=== PATIENT | female | born 1995 | race Caucasian/White ===

== ENCOUNTER 2017-04-30 21:02 | Emergency (ER) | payer OTHER ==
[~2017-04-30] VITALS: Ht 162.6 cm; Wt 75.0 kg
[~2017-04-30 21:02] MED LIST: ACET325T45 PO; ACET500C5 PO; ALBU18HF INHALATION; AZIT250T6 PO; AZIT250T94 PO; CIPR500T4 PO; D-ME118S6 PO; IBUP-1542 PO; ONDA4TAB14 PO; PHEN-538 PO; PHEN177S43 MT; PRED20TA PO
[2017-04-30 21:04] VITALS: Ht 162.6 cm; Wt 75.0 kg
[2017-04-30 21:56] LABS: BASOPHILS % 0.2 % (0.0-2.0); EOSINOPHILS # 0.2 10^3/ul (0.0-0.5); EOSINOPHILS % 1.8 % (0.0-7.0); HEMATOCRIT 41.7 % (37.0-47.0); LYMPHOCYTES # 3.5 10^3/ul (0.8-2.9); LYMPHOCYTES % 37.8 % (18.0-55.0); MEAN CORPUSCULAR HEMOGLOBIN 29.7 pg (29.0-33.0); MEAN CORPUSCULAR HGB CONC 33.6 g/dl (32.0-37.0); MEAN CORPUSCULAR VOLUME 88.5 fl (72.0-104.0); MEAN PLATELET VOLUME 9.5 fl (7.4-10.4); MONOCYTE # 0.5 10^3/ul (0.3-0.9); MONOCYTES % 5.6 % (0.0-13.0); NEUTROPHILS % 54.4 % (30.0-74.0); PLATELET COUNT 442 10^3/UL (140-415); RED BLOOD COUNT 4.71 10^6/ul (4.20-5.40); RED CELL DISTRIBUTION WIDTH 13.7 % (11.5-14.5); WHITE BLOOD COUNT 9.2 10^3/ul (4.8-10.8)
[2017-04-30 22:15] LABS: ADD UMIC NO; UR ASCORBIC ACID NEGATIVE (NEGATIVE); UR BILIRUBIN (Dip) NEGATIVE (NEGATIVE); UR BLOOD (Dip) NEGATIVE (NEGATIVE); UR CLARITY CLEAR (CLEAR); UR COLOR YELLOW (YELLOW); UR GLUCOSE (Dip) NEGATIVE (NEGATIVE); UR KETONES (Dip) NEGATIVE (NEGATIVE); UR LEUKOCYTE ESTERASE (Dip) NEGATIVE Leu/ul (NEGATIVE); UR NITRITE (Dip) NEGATIVE (NEGATIVE); UR SPECIFIC GRAVITY (Dip) 1.027 (1.003-1.030); UR TOTAL PROTEIN (Dip) NEGATIVE (NEGATIVE); UR UROBILINOGEN (Dip) NEGATIVE (NEGATIVE)
[2017-04-30 22:21] LABS: ALBUMIN 4.4 g/dl (3.3-4.9); ALBUMIN/GLOBULIN RATIO 1.07; BILIRUBIN,INDIRECT 0.1 mg/dl (0-1.1); BILIRUBIN,TOTAL 0.1 mg/dl (0.2-1.3); CALCIUM 9.6 mg/dl (8.4-10.2); CREATININE 0.97 mg/dl (0.44-1.00); POTASSIUM 3.8 mmol/L (3.5-5.1); TOTAL PROTEIN 8.5 g/dl (6.1-8.1)
[2017-04-30] MEDS ORDERED: HYDR-3010 PO (22:53)
--- NOTE | 2017-05-01 00:37 | ERD ---
ER Documentation Chief Complaint Chief Complaint itchines of both hands x 2 days HPI 21-year-old female complaining of itchy palms 2 weeks. Patient stated it comes and goes and does not know what caused the irritation. She has never had this before. Denies any epigastric pain or chest pain. Denies fever. Patient symptoms and states that the itching sensation resolved spontaneously. Denies medical problems. Denies chest pain or shortness of breath. ROS All systems reviewed and are negative except as per history of present illness. Medications Home Meds Active Scripts Hydroxyzine Hcl* (Hydroxyzine Hcl*) 10 Mg Tablet, 10 MG PO Q6H Y for ITCHING, # 30 TAB Prov:JENNIFER SHULTZ PA-C 04/30/17 Ondansetron (Ondansetron Odt) 4 Mg Tab.rapdis, 4 MG PO Q8 Y for NAUSEA AND/OR VOMITING, #30 TAB Prov:CHRISTINE HAUSER NP 03/07/16 Ibuprofen* (Motrin*) 600 Mg Tab, 600 MG PO Q6H Y for PAIN AND OR ELEVATED TEMP, #30 TAB Prov:CHRISTINE HAUSER NP 03/07/16 Acetaminophen* (Tylophen*) 500 Mg Capsule, 1 CAP PO Q6H Y for PAIN AND OR ELEVATED TEMP, #20 CAP Prov:CHRISTINE HAUSER NP 03/07/16 Albuterol Sulfate* (Ventolin HFA*) 18 Gm Hfa.aer.ad, 2 PUFF INHALATION Q4H for 7 Days, INHALER Prov:NAHED LUCAS MD 09/09/15 Prednisone* (Prednisone*) 20 Mg Tab, 40 MG PO DAILY for 5 Days, TAB Prov:NAHED LUCAS MD 09/09/15 Azithromycin* (Zithromax*) 250 Mg Tablet, 250 MG PO .CHOLO DIRECTED, #6 TAB TAKE 500 MG (2 TABS) THE FIRST DAY THEN 250 MG (1 TAB) DAYS 2-5 Prov:NAHED LUCAS MD 09/09/15 Dextromethorphan Hb-Promethazine Hcl (Promethazine DM Syrup) 180 Ml Syrup, 5 ML PO Q6 Y for COUGH, #180 ML Prov:PANFILO KEANE DO 09/01/15 Acetaminophen* (Acetaminophen*) 325 Mg Tablet, 650 MG PO Q6 Y for PAIN AND OR ELEVATED TEMP, #30 TAB Prov:PANFILO KEANE DO 09/01/15 Phenol* (Chloraseptic* [place]) 177 Ml [place].pump, 2 SPRAY MT Q2H Y for SORE THROAT, #1 BOTTLE Prov:PANFILO KEANE DO 09/01/15 Azithromycin* (Azithromycin*) 250 Mg Tablet, 250 MG PO DAILY, #6 TAB 2 tabs (500mg) on day 1, then 1 tab (250mg) daily for days 2-5. Prov:NAHED BELTRE PA-C 04/22/15 Phenazopyridine Hcl* (Pyridium*) 200 Mg Tab, 200 MG PO TID for 3 Days, TAB Prov:SHAKEEL MOORE PA-C 04/15/15 Ciprofloxacin Hcl* (Ciprofloxacin Hcl*) 500 Mg Tablet, 500 MG PO BID for 10 Days , TAB Prov:SHAKEEL MOORE PA-C 04/15/15 Allergies Allergies: Coded Allergies: Penicillins (Verified Allergy, Mild, 07/25/12) PMhx/Soc History of Surgery: No Anesthesia Reaction: No Hx Neurological Disorder: No Hx Respiratory Disorders: No Hx Cardiac Disorders: No Hx Psychiatric Problems: No Hx Miscellaneous Medical Probl: No Hx Alcohol Use: No Hx Substance Use: No Hx Tobacco Use: No Smoking Status: Never smoker Physical Exam Vitals Vital Signs Date Time Temp Pulse Resp B/P Pulse Ox O2 Delivery O2 Flow Rate FiO2 04/30/17 21:04 99.4 103 20 127/88 97 Physical Exam GENERAL: The patient is well-appearing, well-nourished, in no acute distress CHEST: Clear to auscultation bilaterally. There are no rales, wheezes or rhonchi. HEART: Regular rate and rhythm. No murmurs, clicks, rubs or gallops. No S3 or S4. EXTREMITIES: Equal pulses bilaterally. There is no peripheral clubbing, cyanosis or edema. No focal swelling or erythema. Full range of motion. Grossly neurovascularly intact. NEUROLOGIC: Alert and oriented. Cranial nerves II through XII intact. Motor strength in all 4 extremities with 5 out of 5 strength. Sensation grossly intact. Normal speech and gait. Babinski negative. DTR 2+ throughout. SKIN: There is no apparent rash or petechiae. The skin is warm and dry. Result Diagram: 04/30/17213904/30/172139 Results 24 hrs Laboratory Tests Test 04/30/17 21:40 White Blood Count 9.210^3/ul Red Blood Count 4.7110^6/ul Hemoglobin 14.0g/dl Hematocrit 41.7% Mean Corpuscular Volume 88.5fl Mean Corpuscular Hemoglobin 29.7pg Mean Corpuscular Hemoglobin Concent 33.6g/dl Red Cell Distribution Width 13.7% Platelet Count 89373^3/UL Mean Platelet Volume 9.5fl Neutrophils % 54.4% Lymphocytes % 37.8% Monocytes % 5.6% Eosinophils % 1.8% Basophils % 0.2% Nucleated Red Blood Cells % 0.0/100WBC Neutrophils # 5.010^3/ul Lymphocytes # 3.510^3/ul Monocytes # 0.510^3/ul Eosinophils # 0.210^3/ul Basophils # 0.010^3/ul Nucleated Red Blood Cells # 0.010^3/ul Urine Color YELLOW Urine Clarity CLEAR Urine pH 6.0 Urine Specific [place] 1.027 Urine Ketones NEGATIVEmg/dL Urine Nitrite NEGATIVEmg/dL Urine Bilirubin NEGATIVEmg/dL Urine Urobilinogen NEGATIVEmg/dL Urine Leukocyte Esterase NEGATIVELeu/ul Urine Hemoglobin NEGATIVEmg/dL Urine Glucose NEGATIVEmg/dL Urine Total Protein NEGATIVEmg/dl Sodium Level 146mmol/L Potassium Level 3.8mmol/L Chloride Level 106mmol/L Carbon Dioxide Level 26mmol/L Anion Gap 18 Blood Urea Nitrogen 11mg/dl Creatinine 0.97mg/dl Glucose Level 114mg/dl Calcium Level 9.6mg/dl Total Bilirubin 0.1mg/dl Direct Bilirubin 0.00mg/dl Indirect Bilirubin 0.1mg/dl Aspartate Amino Transf (AST/SGOT) 29IU/L Alanine Aminotransferase (ALT/SGPT) 46IU/L Alkaline Phosphatase 104IU/L Total Protein 8.5g/dl Albumin 4.4g/dl Globulin 4.10g/dl Albumin/Globulin Ratio 1.07 Lipase 151U/L Serum HCG, Qualitative NEGATIVE Procedures/MDM MDM: 21-year-old female complaining of itchy palms. Patient's liver enzymes are within normal limits. I have low suspicion for elevated bilirubin. Patient 's exam is non-concerning. Patient does not have rash seen on exam. I have low suspicion for life-threatening cause and patient will be discharged with antihistamine medication. Patient is told to follow-up with primary care within 1-2 days for close evaluation and return to the ER symptoms change or worsen. Questions answered at discharge. Departure Diagnosis: Primary Impression: Generalized pruritus Condition: Stable Patient Instructions: Self-Care for Skin Rashes Referrals: CORINNA TURNER (PCP) Additional Instructions: FOLLOW UP WITH YOUR PRIMARY CARE PHYSICIAN TOMORROW.Return to this facility if you are not improving as expected. JENNIFER SHULTZ PA-C May 01, 2017 00:37
== END 2017-04-30 23:01 | disposition home or self-care (01) ==
LOC: MERGE 21:02 → FTE 21:02
DX: L29.9 Pruritus, unspecified (principal)
CPT/HCPCS: 36415; 80053; 81003; 83690; 84703; 85025; Z7502; 99283

== ENCOUNTER 2017-06-06 00:22 | Emergency (ER) | payer SELFPAY ==
[~2017-06-06 00:22] MED LIST changes: +AZIT250T13 PO; -AZIT250T6 PO; +HYDR-3010 PO
[2017-06-06] MEDS ORDERED: PRED20TA PO (14:04)
[2017-06-06] MEDS ORDERED: BEN25 PO (14:04)
[2017-06-06] MEDS ORDERED: FAMO-96 PO (14:04)
== END 2017-06-06 02:39 | disposition left against medical advice (07) ==
LOC: E/R 00:22
DX: Z53.21 Procedure and treatment not carried out due to patient leaving prior to being seen by health care provider (principal)

== ENCOUNTER 2017-06-06 11:17 | Emergency (ER) | END 2017-06-06 14:48 | disposition home or self-care (01) ==

== ENCOUNTER 2018-09-30 13:06 | Emergency (ER) | payer OTHER ==
[~2018-09-30] VITALS: Ht 160 cm; Wt 86.4 kg
[~2018-09-30 13:06] MED LIST changes: +AZIT250T PO; -AZIT250T94 PO; +BEN25 PO; +FAMO-96 PO; -HYDR-3010 PO; +HYDR-3029 PO
[2018-09-30 13:40] VITALS: Ht 160 cm; Wt 86.4 kg
--- NOTE | 2018-09-30 15:26 | ERD ---
ER Documentation Chief Complaint Chief Complaint Noticed red blood on stool today. Hx: IBS HPI 22-year-old female, with history of irritable bowel syndrome, presents the emergency department, complaining of one episode of bright red blood in her stool today. Otherwise, no abdominal pain, no fever chills. No history of previous episodes. ROS All systems reviewed and are negative except as per history of present illness. Medications Home Meds Active Scripts Ranitidine Hcl* (Zantac*) 150 Mg Tablet, 150 MG PO BID PRN for EPIGASTRIC PAIN, #30 TAB Prov:NAHOMI JAMES MD 09/30/18 Famotidine* (Pepcid*) 20 Mg Tablet, 20 MG PO BID for 4 Days, TAB Prov:WILLAM MONTERO PA-C 06/06/17 Diphenhydramine Hcl* (Benadryl*) 25 Mg Cap, 25 MG PO Q6, #30 CAP Prov:WILLAM MONTERO PA-C 06/06/17 Prednisone* (Prednisone*) 20 Mg Tab, 40 MG PO DAILY for 4 Days, TAB Prov:WILLAM MONTERO PA-C 06/06/17 Hydroxyzine Hcl* (Hydroxyzine Hcl*) 10 Mg Tablet, 10 MG PO Q6H PRN for ITCHING, #30 TAB Prov:JENNIFER SHULTZ PA-C 04/30/17 Ondansetron (Ondansetron Odt) 4 Mg Tab.rapdis, 4 MG PO Q8 PRN for NAUSEA AND/OR VOMITING, #30 TAB Prov:CHRISTINE HAUSER NP 03/07/16 Ibuprofen* (Motrin*) 600 Mg Tab, 600 MG PO Q6H PRN for PAIN AND OR ELEVATED TEMP, #30 TAB Prov:CHRISTINE HAUSER NP 03/07/16 Acetaminophen* (Tylophen*) 500 Mg Capsule, 1 CAP PO Q6H PRN for PAIN AND OR ELEVATED TEMP, #20 CAP Prov:CHRISTINE HAUSER NP 03/07/16 Albuterol Sulfate* (Ventolin HFA*) 18 Gm Hfa.aer.ad, 2 PUFF INHALATION Q4H for 7 Days, INHALER Prov:NAHED LUCAS MD 09/09/15 Prednisone* (Prednisone*) 20 Mg Tab, 40 MG PO DAILY for 5 Days, TAB Prov:NAHED LUCAS MD 09/09/15 Azithromycin* (Zithromax*) 250 Mg Tablet, 250 MG PO .ZPACK DIRECTED, #6 TAB TAKE 500 MG (2 TABS) THE FIRST DAY THEN 250 MG (1 TAB) DAYS 2-5 Prov:NAHED LUCAS MD 09/09/15 Dextromethorphan Hb-Promethazine Hcl (Promethazine DM Syrup) 180 Ml Syrup, 5 ML PO Q6 PRN for COUGH, #180 ML Prov:[facility] 09/01/15 Acetaminophen* (Acetaminophen*) 325 Mg Tablet, 650 MG PO Q6 PRN for PAIN AND OR ELEVATED TEMP, #30 TAB [facility] 09/01/15 Phenol* (Chloraseptic* [place]) 177 Ml [place].pump, 2 SPRAY MT Q2H PRN for SORE THROAT, #1 BOTTLE Prov[facility] 09/01/15 Azithromycin* (Azithromycin*) 250 Mg Tablet, 250 MG PO DAILY, #6 TAB 2 tabs (500mg) on day 1, then 1 tab (250mg) daily for days 2-5. Prov:NAHED BELTRE PA-C 04/22/15 Phenazopyridine Hcl* (Pyridium*) 200 Mg Tab, 200 MG PO TID for 3 Days, TAB Prov:SHAKEEL MOORE PA-C 04/15/15 Ciprofloxacin Hcl* (Ciprofloxacin Hcl*) 500 Mg Tablet, 500 MG PO BID for 10 Days, TAB Prov:SHAKEEL MOORE PA-C 04/15/15 Allergies Allergies: Coded Allergies: Penicillins (Verified Allergy, Mild, 05/01/17) PMhx/Soc History of Surgery: No Anesthesia Reaction: No Hx Neurological Disorder: No Hx Respiratory Disorders: No Hx Cardiac Disorders: No Hx Psychiatric Problems: No Hx Miscellaneous Medical Probl: Yes (Irritable bowel syndrome) Hx Alcohol Use: No Hx Substance Use: No Hx Tobacco Use: No Smoking Status: Never smoker FmHx Family History: No diabetes, No coronary disease Physical Exam Vitals Vital Signs Date Temp Pulse Resp B/P (MAP) Pulse Ox O2 O2 Flow FiO2 Time Delivery Rate 09/30/18 99.1 94 20 156/92 98 13:40 (113) Physical Exam Const: No acute distress Head: Atraumatic Eyes: Normal Conjunctiva ENT: Normal External Ears, Nose and Mouth. Neck: Full range of motion. No meningismus. Resp: Clear to auscultation bilaterally Cardio: Regular rate and rhythm, no murmurs Abd: Soft, non tender, non distended. Normal bowel sounds Rectal: Normal inspection, normal sphincter, no bright red blood per rectum, Hemoccult negative. No masses. Skin: No petechiae or rashes Back: No midline or flank tenderness Ext: No cyanosis, or edema Neur: Awake and alert Psych: Normal Mood and Affect Procedures/MDM Vital signs stable, patient hemodynamically stable. Differential diagnosis include but not limited to: Hemorrhoids, rectal fissure, inflammatory bowel disease, anal fistula, AV malformation, colitis. Low suspicion for active rectal bleeding. Physical examination and clinical presentation consistent most likely with resolved rectal bleeding most likely secondary to internal hemorrhoid. During the ED course the patient remained stable, no new complaints. Results and clinical impression discussed with the patient who agrees with management. The patient is stable to be discharged home with instructions to follow up with the primary care provider in the next 48h. If symptoms persist, worsen or new symptoms develop, then patient should return to the ED immediately. Instructions explained and given directly by me to the patient with acknowledgment and demonstrated understanding. Disclaimer: Inadvertent spelling and grammatical errors are likely due to EHR/dictation software use and do not reflect on the overall quality of patient care. Also, please note that the electronic time recorded on this note does not necessarily reflect the actual time of the patient encounter. Departure Diagnosis: Primary Impression: BRBPR (bright red blood per rectum) Additional Impression: Irritable bowel syndrome (IBS) Condition: Stable Additional Instructions: Thank you very much for allowing us to participate in your care. Your health and safety is our top priority at [facility]. The evaluation in the emergency department has been done to rule out an acute emergency, therefore, chronic conditions like malignancy or other diseases have not been evaluated; therefore, you need to follow up with a primary care provider in the next 48h. If symptoms persist, worsen or new symptoms develop, then patient should return to the ED immediately. Call your primary care doctor TOMORROW for an appointment during the next 2-4 days and bring all the information provided. Have prescriptions filled and follow precisely the directions on the label. If the symptoms get worse and your provider is unavailable, return to the Emergency Department immediately. NAHOMI JAMES MD Sep 30, 2018 15:26
[2018-09-30] MEDS ORDERED: RANI150T35 PO (16:36)
== END 2018-09-30 17:13 | disposition home or self-care (01) ==
LOC: FTE 13:06
DX: K62.5 Hemorrhage of anus and rectum (principal); K58.9 Irritable bowel syndrome, unspecified
CPT/HCPCS: 99282

== ENCOUNTER 2019-04-01 05:56 | Emergency (ER) | payer OTHER ==
[~2019-04-01] VITALS: Ht 157.5 cm; Wt 84.9 kg
[~2019-04-01 05:56] MED LIST changes: +RANI-535 PO
[2019-04-01 06:03] VITALS: BP 135/76; PULSE 87; RESP 18; Ht 157.5 cm; Wt 84.9 kg
== END 2019-04-01 08:30 | disposition home or self-care (01) ==
LOC: FTE 05:56
DX: N93.8 Other specified abnormal uterine and vaginal bleeding (principal); E03.9 Hypothyroidism, unspecified
CPT/HCPCS: 36415; 76830; 76856; 81025; 84439; 84443; 85025; 85610; 85730; Z7502